=== PATIENT | female | born 1980 | race Caucasian/White ===

== ENCOUNTER 2017-12-01 11:00 | Emergency (ER) | payer OTHER ==
[2017-12-01 12:57] LABS: ABS Basophils 0.1 10^3/ul (0-0.2); ABS Eosinophils 0.2 10^3/ul (0-0.6); ABS Lymphocytes 1.8 10^3/ul (1.0-4.8); ABS Monocytes 0.7 10^3/ul (0-0.8); ABS Neutrophils 6.9 10^3/ul (1.5-7.7); ABS Nucleated RBC 0 10^3/ul; Hematocrit 40 % (35-47); Hemoglobin 13.5 g/dl (12.0-16.0); Lymphocyte % 18.9 % (25-47); Mean Corpuscular HGB Conc 34 g/dl (31-36); Mean Corpuscular Hemoglobin 31 pg (27-31); Mean Corpuscular Volume 91 fL (80-97); Mean Platelet Volume 7 um3 (7.4-10.4); Nucleated Red Blood Cells % 0; Platelet Count 370 10^3/ul (150-450); Red Blood Count 4.37 10^6/ul (4.0-5.4); Red Cell Distribution Width 13 % (10.5-15); White Blood Count 9.7 10^3/ul (3.5-10.8)
[2017-12-01 13:04] LABS: INR 0.98 (0.77-1.02)
--- NOTE | 2017-12-01 13:11 | RAD ---
HISTORY: Headache, ringing in ears COMPARISONS: None TECHNIQUE: Multiple contiguous axial CT scans were obtained of the head without intravenous contrast. FINDINGS: HEMORRHAGE/INFARCT: There is no hemorrhage or acute infarct. MASSES/SHIFT: There is no mass or shift. EXTRA-AXIAL SPACES: There are no extra-axial fluid collections. SULCI AND VENTRICLES: The sulci and ventricles are normal in size and position for the patient's stated age. CEREBRUM: There are no focal parenchymal abnormalities. BRAINSTEM: There are no focal parenchymal abnormalities. CEREBELLUM: There are no focal parenchymal abnormalities. VESSELS: The vessels are grossly normal. PARANASAL SINUSES: The paranasal sinuses are clear. ORBITS: The orbits are unremarkable. BONES AND SOFT TISSUE: No bone or soft tissue abnormalities are noted. OTHER: None IMPRESSION: NO ACUTE INTRACRANIAL PATHOLOGY.
[2017-12-01 13:21] LABS: EGFR Non-African American 101.5 (>60)
[2017-12-01 13:21] LABS: Urine Appearance Cloudy; Urine Blood 2+ (Negative); Urine Color Yellow; Urine Ketones Negative (Negative); Urine Protein Negative (Negative); Urine Specific Gravity 1.026 (1.010-1.030); Urine Urobilinogen Negative (Negative)
[2017-12-01 13:55] VITALS: BP 127/84
--- NOTE | 2017-12-02 15:28 | ED ---
Jennifer Cain Gabriel, scribed for Chad Da Silva MD on 12/01/17 at 1239 . Headache - HPI Summary HPI Summary: This patient is a 37 year old F presenting to [facility] with a chief complaint of HERNANDEZ since 11-21-2017. The patient rates the dull achy pain 4/10 in severity and located in the back of her head. Symptoms aggravated by increased screen time. Patient reports ringing in her ears, blurry vision, intermittent extremity tingling, and impaired sense of taste and smell. Pt compares the HERNANDEZ to a bad hangover. She had a more intense HERNANDEZ on 11-20-17 and it was more wide spread her head but it has slightly dulled now. - History Of Current Complaint Chief Complaint: EDHeadache Stated Complaint: HEADACHE, RING IN EARS Time Seen by Provider: 12/01/17 12:19 Hx Obtained From: Patient Hx Last Menstrual Period: currently Onset/Duration: Still Present Initially Headache Was: Initial Pain Scale(0-10)= - 6 Currently Pain Is: Current Pain Scale(0-10)= - 4 Timing: Constant Character: Dull Location of Headache: Occipital Associated Signs And Symptoms: Other (Noted In Comments) - ringing in her ears, blurry vision, intermittent extremity tingling, and impaired sense of taste and smell. - Allergies/Home Medications Allergies/Adverse Reactions: Allergies Allergy/AdvReac Type Severity Reaction Status Date / Time MS Erythromycin AdvReac Severe GI Upset Verified 12/01/17 11:14 [Erythromycin] Home Medications: Home Medications NK [No Home Medications Reported] 12/01/17 [History Confirmed 12/01/17] PMH/Surg Hx/FS Hx/Imm Hx Endocrine/Hematology History: Denies: Hx Diabetes, Hx Thyroid Disease Cardiovascular History: Denies: Hx Hypertension Respiratory History: Denies: Hx Asthma, Hx Chronic Obstructive Pulmonary Disease (COPD) GI History: Denies: Hx Ulcer Sensory History: Denies: Hx Eye Prosthesis, Hx Glaucoma, Hx Legally Blind - Surgical History Surgery Procedure, Year, and Place: Benign Melanoma Left Index Finger Jul 2011 Infectious Disease History: Unable to Obtain/Confirm Infectious Disease History: Denies: Hx Hepatitis, Hx Human Immunodeficiency Virus (HIV), Traveled Outside the [place] in Last 30 Days - Family History Known Family History: Positive: Cardiac Disease, Diabetes Negative: Renal Disease, Respiratory Disease, Seizure Disorder, Other - CVA - Social History Occupation: Employed Full-time Lives: With Family Alcohol Use: Occasionally Substance Use Type: Reports: None Review of Systems Positive: Blurred Vision ENT: Other Positive: Other - ringing in ears Positive: Headache, Paresthesia All Other Systems Reviewed And Are Negative: Yes Physical Exam - Summary Physical Exam Summary: Appearance: The patient is well-nourished in no acute distress and in no acute pain. Skin: The skin is warm and dry and skin color reflects adequate perfusion. HEENT: The head is normocephalic and atraumatic. The pupils are equal and reactive. The conjunctivae are clear and without drainage. Nares are patent and without drainage. Mouth reveals moist mucous membranes and the throat is without erythema and exudate. The external ears are intact. The ear canals are patent and without drainage. The tympanic membranes are intact. Neck: the neck is supple with full range of motion and non-tender. There are no carotid bruits. There is no neck vein distension. Respiratory: Chest is non-tender. Lungs are clear to auscultation and breath sounds are symmetrical and equal. Cardiovascular: Heart is regular rate and rhythm. There is no murmur or rub auscultated. There is no peripheral edema and pulses are symmetrical and equal. Abdomen: The abdomen is soft and non-tender. There are normal bowel sounds heard in all four quadrants and there is no organomegaly palpated. Musculoskeletal: There is no back tenderness noted. Extremities are non-tender with full range of motion. There is good capillary refill. There is no peripheral edema or calf tenderness elicited. Neurological: Patient is alert and oriented to person, place and time. The patient has symmetrical motor strength in all four extremities. Cranial nerves are grossly intact. Deep tendon reflexes are symmetrical and equal in all four extremities. Psychiatric: The patient has an appropriate affect and does not exhibit any anxiety or depression. Triage Information Reviewed: Yes Vital Signs On Initial Exam: Initial Vitals Temp Pulse Resp BP Pulse Ox 97.3 F 80 16 133/94 100 12/01/17 11:09 12/01/17 11:09 12/01/17 11:09 12/01/17 11:12/01/17 11:09 Vital Signs Reviewed: Yes Diagnostics - Vital Signs Vital Signs Temp Pulse Resp BP Pulse Ox 12/01/17 11:09 97.3 F 80 16 133/94 100 - Laboratory Lab Results: Lab Results 12/01/17 12/01/17 12/01/17 Range/Units 12:49 12:49 12:49 WBC 9.7 (3.5-10.8) 10^3/ul RBC 4.37 (4.0-5.4) 10^6/ul Hgb 13.5 (12.0-16.0) g/dl Hct 40 (35-47) % MCV 91 (80-97) fL MCH 31 (27-31) pg MCHC 34 (31-36) g/dl RDW 13 (10.5-15) % Plt Count 370 (150-450) 10^3/ul MPV 7 L (7.4-10.4) um3 Neut % (Auto) 71.2 (38-83) % Lymph % (Auto) 18.9 L (25-47) % Ashe % (Auto) 7.0 (1-9) % Eos % (Auto) 2.0 (0-6) % Baso % (Auto) 0.9 (0-2) % Absolute Neuts (auto) 6.9 (1.5-7.7) 10^3/ul Absolute Lymphs (auto) 1.8 (1.0-4.8) 10^3/ul Absolute Monos (auto) 0.7 (0-0.8) 10^3/ul Absolute Eos (auto) 0.2 (0-0.6) 10^3/ul Absolute Basos (auto) 0.1 (0-0.2) 10^3/ul Absolute Nucleated RBC 0 10^3/ul Nucleated RBC % 0 INR (Anticoag Therapy) 0.98 (0.77-1.02) Sodium 137 (133-145) mmol/L Potassium 3.5 (3.5-5.0) mmol/L Chloride 101 (101-111) mmol/L Carbon Dioxide 29 (22-32) mmol/L Anion Gap 7 (2-11) mmol/L BUN 8 (6-24) mg/dL Creatinine 0.65 (0.51-0.95) mg/dL Est GFR ( Amer) 130.5 (>60) Est GFR (Non-Af Amer) 101.5 (>60) BUN/Creatinine Ratio 12.3 (8-20) Glucose 93 (70-100) mg/dL Lactic Acid (0.5-2.0) mmol/L Calcium 9.6 (8.6-10.3) mg/dL Magnesium 2.1 (1.9-2.7) mg/dL Total Bilirubin 0.40 (0.2-1.0) mg/dL AST 15 (13-39) U/L ALT 16 (7-52) U/L Alkaline Phosphatase 64 (34-104) U/L Troponin I 0.00 (<0.04) ng/mL Total Protein 7.8 (6.4-8.9) g/dL Albumin 4.3 (3.2-5.2) g/dL Globulin 3.5 (2-4) g/dL Albumin/Globulin Ratio 1.2 (1-3) TSH 3.68 (0.34-5.60) mcIU/mL Urine Color Urine Appearance Urine pH (5-9) Ur Specific [place] (1.010-1.030) Urine Protein (Negative) Urine Ketones (Negative) Urine Blood (Negative) Urine Nitrate (Negative) Urine Bilirubin (Negative) Urine Urobilinogen (Negative) Ur Leukocyte Esterase (Negative) Urine WBC (Auto) (Absent) Urine RBC (Auto) (Absent) Ur Squamous Epith Cells (Absent) Urine Bacteria (Absent) Urine Glucose (Negative) Urine Ascorbic Acid (Negative) 12/01/17 12/01/17 Range/Units 12:49 13:05 WBC (3.5-10.8) 10^3/ul RBC (4.0-5.4) 10^6/ul Hgb (12.0-16.0) g/dl Hct (35-47) % MCV (80-97) fL MCH (27-31) pg MCHC (31-36) g/dl RDW (10.5-15) % Plt Count (150-450) 10^3/ul MPV (7.4-10.4) um3 Neut % (Auto) (38-83) % Lymph % (Auto) (25-47) % Ashe % (Auto) (1-9) % Eos % (Auto) (0-6) % Baso % (Auto) (0-2) % Absolute Neuts (auto) (1.5-7.7) 10^3/ul Absolute Lymphs (auto) (1.0-4.8) 10^3/ul Absolute Monos (auto) (0-0.8) 10^3/ul Absolute Eos (auto) (0-0.6) 10^3/ul Absolute Basos (auto) (0-0.2) 10^3/ul Absolute Nucleated RBC 10^3/ul Nucleated RBC % INR (Anticoag Therapy) (0.77-1.02) Sodium (133-145) mmol/L Potassium (3.5-5.0) mmol/L Chloride (101-111) mmol/L Carbon Dioxide (22-32) mmol/L Anion Gap (2-11) mmol/L BUN (6-24) mg/dL Creatinine (0.51-0.95) mg/dL Est GFR ( Amer) (>60) Est GFR (Non-Af Amer) (>60) BUN/Creatinine Ratio (8-20) Glucose (70-100) mg/dL Lactic Acid 1.5 (0.5-2.0) mmol/L Calcium (8.6-10.3) mg/dL Magnesium (1.9-2.7) mg/dL Total Bilirubin (0.2-1.0) mg/dL AST (13-39) U/L ALT (7-52) U/L Alkaline Phosphatase (34-104) U/L Troponin I (<0.04) ng/mL Total Protein (6.4-8.9) g/dL Albumin (3.2-5.2) g/dL Globulin (2-4) g/dL Albumin/Globulin Ratio (1-3) TSH (0.34-5.60) mcIU/mL Urine Color Yellow Urine Appearance Cloudy Urine pH 5.0 (5-9) Ur Specific [place] 1.026 (1.010-1.030) Urine Protein Negative (Negative) Urine Ketones Negative (Negative) Urine Blood 2+ H (Negative) Urine Nitrate Negative (Negative) Urine Bilirubin Negative (Negative) Urine Urobilinogen Negative (Negative) Ur Leukocyte Esterase Negative (Negative) Urine WBC (Auto) Trace(0-5/hpf) (Absent) Urine RBC (Auto) 2+(6-10/hpf) H (Absent) Ur Squamous Epith Cells Present H (Absent) Urine Bacteria Absent (Absent) Urine Glucose Negative (Negative) Urine Ascorbic Acid * H (Negative) Result Diagrams: 12/01/17 12:49 12/01/17 12:49 Lab Statement: Any lab studies that have been ordered have been reviewed, and results considered in the medical decision making process. - CT CT Brain CT Interpretation Completed By: Radiologist - NO ACUTE INTRACRANIAL PATHOLOGY. ED physician has reviewed this radiology report. 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 Since then it has down to a diffuse ache. She had some blurred and possibly diplopic vison which she is equivocal about whether it has resolved. She has had no gait disturbance. 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 When I first spoke with her, she made it clear that she had to be elsewhere to teach a class which she was unwilling to cancel so we made some compromises. She had a quick CT brain which was negative and labs also. I spoke with Dr. Sol because of my concern that she would likely need an LP and he agreed. It is unlikely but this could represent infection or sentinel bleed. We didn't have time but I was able to get her hooked up with Dr. Moser for an outpatient LP tomorrow or Wednesday and Dr. Sol was willing to see her in the office the first of next week. She will possibly need MR in the future. - Diagnoses Provider Diagnoses: Headache - Physician Notifications Discussed Care Of Patient With: Selwyn Sol Time Discussed With Above Provider: 13:26 Instructed by Provider To: Other - We discussed patient care with Dr. Sol and they recommended a LP but if she doesnt stay he will follow up with her next week. Discharge - Discharge Plan Condition: Stable Disposition: HOME Patient Education Materials: Acute Headache (ED) Referrals: Megan Moser MD [Medical Doctor] - 4 Days Selwyn Sol MD [Medical Doctor] - 7 Days Additional Instructions: Follow up with Dr. Sol he has agreed to see you next week, call [facility] to set up an appointment. RETURN TO EMERGENCY DEPARTMENT FOR ANY NEW OR WORSENING SYMPTOMS The documentation as recorded by the Jennifer machuca Gabriel accurately reflects the service I personally performed and the decisions made by me, Chad Da Silva MD.
== END 2017-12-01 13:54 | disposition home or self-care (01) ==
LOC: ED 11:00
DX: R51 Headache (principal); H53.8 Other visual disturbances; R20.2 Paresthesia of skin
CPT/HCPCS: 36415; 70450; 80053; 81003; 81015; 83605; 83735; 84443; 84484; 85025; 85610; 99282

== ENCOUNTER 2017-12-03 10:56 | Emergency (ER) | payer OTHER ==
[2017-12-03 12:37] LABS: ABS Basophils 0.1 10^3/ul (0-0.2); ABS Eosinophils 0.1 10^3/ul (0-0.6); ABS Lymphocytes 1.8 10^3/ul (1.0-4.8); ABS Monocytes 0.5 10^3/ul (0-0.8); ABS Neutrophils 6.1 10^3/ul (1.5-7.7); ABS Nucleated RBC 0 10^3/ul; Eosinophil % 1.5 % (0-6); Hematocrit 38 % (35-47); Hemoglobin 13.1 g/dl (12.0-16.0); Lymphocyte % 20.7 % (25-47); Mean Corpuscular HGB Conc 34 g/dl (31-36); Mean Corpuscular Hemoglobin 31 pg (27-31); Mean Corpuscular Volume 90 fL (80-97); Mean Platelet Volume 7 um3 (7.4-10.4); Nucleated Red Blood Cells % 0; Platelet Count 396 10^3/ul (150-450); Red Blood Count 4.25 10^6/ul (4.0-5.4); Red Cell Distribution Width 13 % (10.5-15); White Blood Count 8.5 10^3/ul (3.5-10.8)
[2017-12-03 12:47] LABS: INR 0.92 (0.77-1.02)
[2017-12-03 13:05] LABS: EGFR Non-African American 105.2 (>60)
[2017-12-03] MEDS ORDERED: Lidocaine 1% INJ* 10 MG/ML 30 ML SDV ONE (13:08)
[2017-12-03 14:33] LABS: Urine Appearance Cloudy; Urine Blood 3+ (Negative); Urine Color Yellow; Urine Ketones Negative (Negative); Urine Protein Negative (Negative); Urine Specific Gravity 1.012 (1.010-1.030); Urine Urobilinogen Negative (Negative)
[2017-12-03] MEDS ORDERED: Gadoteridol* (CONTRAST) 279.3 MG/ML 10 ML IV ONE (15:53)
[2017-12-03] MEDS ORDERED: Ketorolac INJ* 30 MG/ML 1 ML VIAL IV PUSH ONE (19:13)
[2017-12-03] MEDS ORDERED: Dexamethasone IV* 4 MG/ML 1 ML (4 MG) IV SLOW PU ONE (19:13)
[2017-12-03] MEDS ORDERED: Ketorolac INJ* 60 MG/2 ML VIAL IM ONE (19:18)
[2017-12-03] MEDS ORDERED: Dexamethasone IV* 4 MG/ML 1 ML (4 MG) IM ONE (19:18)
--- NOTE | 2017-12-03 19:36 | ED ---
Ehsan Cain Jennifer, scribed for Aureliano Alarcon MD on 12/03/17 at 1242 . Neurological HPI - HPI Summary HPI Summary: The patient is a 37 year old female who presents to the ED with headaches that began about two weeks ago. She describes that three weeks ago she woke up with a bad headache and took two Advil, which relieved the pain. However, the headache came back two weeks ago. The patient reports that the pain is a dull, throbbing pain in the back of her head and she has been sensitive to light. She has also had vision problems, like drifting eyes, tinnitus, blurry vision, and her sense of taste and smell are off. The patient additionally complains of nausea, loss of appetite, increased frequency of urinating, severe diarrhea that began two days ago, neck tightness since four days ago, tingling in the left ankle and upper back, and bloating, cramping abdominal pain that has been coming and going for the past four days. She denies blood or black, tarry stool and adds that she is currently on her period. She also denies fever, sweats, and chills. The patient explains that sneezing aggravates the headache. Dr. Alarcon reviewed Dr. Reevles medical records of the patient from December 01. - History of Current Complaint Chief Complaint: EDExtremityLower Stated Complaint: BACK & FOOT NUMBNESS-WAS HERE 12/01 Time Seen by Provider: 12/03/17 12:18 Hx Obtained From: Patient Hx Last Menstrual Period: currently Onset/Duration: Started weeks ago - two weeks, Still Present, Worse Since Timing: Constant Onset Severity: Moderate Current Severity: Moderate Headache Location: Radiates to : - Back of head Pain Intensity: 3 Pain Scale Used: 0-10 Numeric Character: Dull, Throbbing Aggravating: Headaches - Sneezing, Bright Lights Alleviating: Nothing Associated Signs and Symptoms: Positive: Tinnitus, Visual Changes, Headache, Numbness - Tingling in left ankle, Nausea/Vomiting - Nausea, Neck Pain/Stiffness , Diarrhea. Negative: GI Blood Loss, Fever - Allergy/Home Medications Allergies/Adverse Reactions: Allergies Allergy/AdvReac Type Severity Reaction Status Date / Time MS Erythromycin AdvReac Severe GI Upset Verified 12/01/17 11:14 [Erythromycin] PMH/Surg Hx/FS Hx/Imm Hx Endocrine/Hematology History: Denies: Hx Diabetes, Hx Thyroid Disease Cardiovascular History: Denies: Hx Hypertension Respiratory History: Denies: Hx Asthma, Hx Chronic Obstructive Pulmonary Disease (COPD) GI History: Denies: Hx Ulcer Sensory History: Denies: Hx Eye Prosthesis, Hx Glaucoma, Hx Legally Blind Opthamlomology History: Denies: Hx Eye Prosthesis, Hx Glaucoma, Hx Legally Blind Neurological History: Denies: Hx Migraine - Surgical History Surgery Procedure, Year, and Place: Benign Melanoma Left Index Finger Jul 2011 Infectious Disease History: No Infectious Disease History: Denies: Hx Hepatitis, Hx Human Immunodeficiency Virus (HIV), Traveled Outside the [place] in Last 30 Days - Family History Known Family History: Positive: Cardiac Disease, Diabetes Negative: Renal Disease, Respiratory Disease, Seizure Disorder, Other - CVA - Social History Alcohol Use: Occasionally Substance Use Type: Reports: None Smoking Status (MU): Never Smoked Tobacco Review of Systems Positive: Other - Sense of taste and smell are off. Negative: Fever, Chills, Skin Diaphoresis Eyes: Other - Drifting eyes Positive: Photophobia, Blurred Vision. Negative: Erythema Negative: Sore Throat Negative: Chest Pain Negative: Shortness Of Breath, Cough Positive: Abdominal Pain - Bloating, cramping, Diarrhea, Nausea, Other - Loss of appetite. Negative: Vomiting Genitourinary: Negative - Bloody and black stools, Other - Increased frequency of urinating Negative: dysuria, hematuria Positive: Other - Neck tightness. Negative: Myalgia, Edema Negative: Rash Neurological: Negative - Dizziness, Other - Tinnitus, tingling in the left ankle and upper back Positive: Headache All Other Systems Reviewed And Are Negative: Yes Physical Exam - Summary Physical Exam Summary: Constitutional: Well-developed, Well-nourished, Alert. (-) Distressed Skin: Warm, Dry HENT: Normocephalic; Atraumatic Eyes: Conjunctiva normal. Limited fundoscopic exam. Neck: Musculoskeletal ROM normal neck. (-) JVD, (-) Stridor, (-) Tracheal deviation Cardio: Rhythm regular, rate normal, Heart sounds normal; Intact distal pulses; The pedal pulses are 2+ and symmetric. Radial pulses are 2+ and symmetric. (-) Murmur Pulmonary/Chest wall: Effort normal. (-) Respiratory distress, (-) Wheezes, (-) Rales Abd: Soft. (-) Tenderness, ~(-) Distension, (-) Guarding, (-) Rebound Musculoskeletal: (-) Edema Lymph: (-) Cervical adenopathy Neuro: Alert, Oriented x3, Strength normal, Cranial nerves II-XII are grossly intact. (-) Dysmetria, (-) Nystagmus, (-) Ataxia by finger to nose testing, (-) Sensory deficit. Psych: Mood and affect Normal Triage Information Reviewed: Yes Vital Signs On Initial Exam: Initial Vitals Temp Pulse Resp BP Pulse Ox 97.7 F 93 20 133/71 100 12/03/17 11:00 12/03/17 11:00 12/03/17 11:00 12/03/17 11:12/03/17 11:00 Vital Signs Reviewed: Yes Procedures - Lumbar Puncture Position: Lateral Decubitus - Left Anesthesia Used: 1.0% Lido - 5mL Lumbar Puncture Note: Informed consent occurred and patient understood the risks including headache, bleeding, and infection. Timeout with Saima. Landmarks were identified. Position was left lateral decubitus, L4-L5 interspace 5mL of 1% Lidocaine was used. Clear fluid was obtained. Slightly traumatic tap. Opening pressure was 17cm of water. Patient tolerated well. Diagnostics - Vital Signs Vital Signs Temp Pulse Resp BP Pulse Ox 12/03/17 11:00 97.7 F 93 20 133/71 100 - Laboratory Result Diagrams: 12/03/17 12:20 12/03/17 12:20 Lab Statement: Any lab studies that have been ordered have been reviewed, and results considered in the medical decision making process. Course/Dx - Course Assessment/Plan: The patient is a 37 year old female who presents to the ED with headaches that began about two weeks ago. She additionally complains of tinnitus, blurry vision, off sense of taste and smell, nausea, loss of appetite , increased frequency of urinating, severe diarrhea, neck tightness, tingling in the left ankle and upper back, and abdominal pain. Bloodwork and Urinalysis were obtained. A Lumbar Puncture procedure was performed, which the patient tolerated well. Dr. Sol, neurology, recommended that the patient have MRA, MRV , and MRI scans done. I evaluated the preliminary reads for the MRs and all were negative. CSF was negative for subarachnoid hemorrhage and pseudotumor cerebri. Dr. Sol would like to see the patient in his office next week. The associated symptoms could be related to migraine headache. The patient is diagnosed with headache. She will have close follow-up with neurology. I will write a prescription for Reglan for at home. She can follow-up with Dr. Gabriel Sol in 2-3 days. She needs to tell the office that he wanted to see her on 12/06/2017 or 12/07/2017. - Diagnoses Provider Diagnoses: Headache - Physician Notifications Discussed Care Of Patient With: Selwyn Sol Time Discussed With Above Provider: 13:55 Instructed by Provider To: Other - Dr. Sol, neurology, recommends the patient has MRA, MRV, and MRI scans done. Discharge - Discharge Plan Condition: Stable Disposition: HOME Prescriptions: Metoclopramide TAB* [Reglan TAB*] 10 mg PO Q8H #21 tab Referrals: Selwyn Sol MD [Medical Doctor] - 3 Days Additional Instructions: Follow up with Dr. Gabriel Sol, neurology, in two-three days. Return to the emergency department for any new or worsening symptoms. The documentation as recorded by the Ehsan machuca Jennifer accurately reflects the service I personally performed and the decisions made by , Aureliano Alarcon MD.
[2017-12-03 19:58] VITALS: BP 118/95
--- NOTE | 2017-12-04 07:27 | RAD ---
HISTORY: Persistent headache COMPARISONS: None TECHNIQUE: 3-D axial [id number] MR angiography was performed of the head to include the [place] of Read. Multiple 3-D maximum intensity projection reconstructions are also submitted for review. FINDINGS: RIGHT VERTEBRAL ARTERY: The distal right vertebral artery is unremarkable, without stenosis. LEFT VERTEBRAL ARTERY: The distal left vertebral artery is unremarkable, without stenosis. DOMINANCE: The vertebral arteries are codominant. DISTAL RIGHT CERVICAL INTERNAL CAROTID ARTERY: The distal right cervical internal carotid artery is unremarkable. DISTAL LEFT CERVICAL INTERNAL CAROTID ARTERY: The distal left cervical internal carotid artery is unremarkable. INTRACRANIAL CIRCULATION: There is no aneurysm, vascular malformation, occlusion, or stenosis of the visualized intracranial circulation. The anterior communicating artery complex is dominant over the A1 segment of the right anterior cerebral artery. The anterior communicating artery complex is clear. The posterior commuting arteries are diminutive, though present. The right middle cerebral artery is essentially isolated with associated asymmetry in the size of internal carotid arteries. This is considered a normal anatomic variant. OTHER FINDINGS: None IMPRESSION: NO ANEURYSM, VASCULAR MALFORMATION, OCCLUSION, OR STENOSIS OF THE VISUALIZED INTRACRANIAL CIRCULATION.
--- NOTE | 2017-12-04 07:30 | RAD ---
HISTORY: Headache COMPARISONS: None TECHNIQUE: Multiple 3-D phase contrast MR venography was performed, with multiple 3-D maximum intensity projection reconstructions. FINDINGS: VENOUS SINUSES: The venous sinuses are patent. There is no stenosis or occlusion. There is no filling defect to suggest thrombosis. Arachnoid granulations are noted. DEEP VEINS: The deep veins are patent. The internal cerebral veins are dominant over the basal veins of Nelson. OTHER FINDINGS: None IMPRESSION: NO VENOUS SINUS THROMBOSIS OR OCCLUSION.
--- NOTE | 2017-12-04 07:33 | RAD ---
HISTORY: Headache COMPARISONS: Head CT dated December 01, 2017 TECHNIQUE: The following sequences were obtained of the head: Sagittal T1-weighted images, axial T2-weighted images, axial FLAIR images, axial susceptibility weighted images, axial T1-weighted images. Additionally, axial diffusion-weighted images were obtained with calculated apparent diffusion coefficients. Additionally, sagittal, coronal, and axial T1-weighted images were obtained after contrast enhancement with a gadolinium-based intravenous contrast agent. FINDINGS: HEMORRHAGE/INFARCT: There is no hemorrhage or acute infarct. MASSES/SHIFT: There is no mass or shift. EXTRA-AXIAL SPACES/MENINGES: There are no extra-axial fluid collections. SULCI AND VENTRICLES: The sulci and ventricles are normal in size and position for the patient's stated age. CEREBRUM: There is a single small focus of elevated T2/FLAIR signal in the subcortical white matter of the left frontal lobe on axial image 20 measuring 0.7 x 0.3 cm in size transversely. There is no associated abnormal enhancement. No other focal parenchymal abnormalities are noted. BRAINSTEM: There are no focal parenchymal abnormalities. CEREBELLUM: There are no focal parenchymal abnormalities. The cerebellar tonsils are normal in size and position. SELLA: The sella is normal. PINEAL: The pineal region is clear. CP ANGLE/TEMPORAL BONES: The labyrinthine structures are grossly normal. VESSELS: Normal flow-voids are noted within the visualized vertebral vasculature. DIFFUSION ABNORMALITIES: There are no diffusion abnormalities. PARANASAL SINUSES/MASTOIDS: There is a small mucous retention cyst of the right maxillary sinus. ORBITS: The orbits are unremarkable. BONES AND SOFT TISSUE: No bone or soft tissue abnormalities are noted. OTHER: There is no abnormal enhancement. IMPRESSION: 1. STABLE SMALL NONENHANCING FOCUS OF ELEVATED T2/CARCINOMA SUBCORTICAL WHITE MATTER OF THE LEFT FRONTAL LOBE. WHILE NONSPECIFIC, THIS CAN BE SEEN THE SEQUELA OF PREVIOUS INFECTION OR INFLAMMATION, AND IN ASSOCIATION WITH MIGRAINE HEADACHE. CHRONIC SMALL VESSEL ISCHEMIC CHANGE AND DEMYELINATING DISEASE ARE WITHIN THE DIFFERENTIAL, BUT ARE CONSIDERED LESS LIKELY IN THE ABSENCE OF THE APPROPRIATE CLINICAL PRESENTATION. 2. OTHERWISE UNREMARKABLE MRI OF THE BRAIN. THERE IS NO ABNORMAL ENHANCEMENT
== END 2017-12-03 19:57 | disposition home or self-care (01) ==
LOC: ED 10:56
DX: R51 Headache (principal); G93.9 Disorder of brain, unspecified; Z88.3 Allergy status to other anti-infective agents
CPT/HCPCS: 36415; 62270; 70544; 70553; 80053; 81003; 81015; 82945; 83605; 84157; 85025; 85610; 85652; 85730; 86140; 87040; 87070; 87205; 89051; 96374; 96375; 99284; A9579; J1100; J1885

== ENCOUNTER 2019-03-13 09:44 | Emergency (ER) | payer OTHER ==
--- NOTE | 2019-03-13 10:25 | ED ---
Abdominal Pain/Female - HPI Summary HPI Summary: The patient is a 38 y/o F presenting to [facility] accompanied by with a chief complaint of gradual onset left low back and left flank pain that radiates to the left abdominal pain starting three days ago with worsening since onset. She states that although she hasn't had any kidney stones, she thinks that she may have one because of an extensive family history of them in her grandparents, father, brother, and aunt. The sharp pain is more consistent than it was initially, and it's currently rated 8/10 in severity. She has taken 800mg Ibuprofen [employer] to mild relief. The pain is aggravated by lying or sitting, and alleviated by standing. She additionally c/o nausea and increased urinary frequency, but she states she has been drinking more water than usual. She denies burning with urination and hematuria. LNMP: 02/25/2019. Hx of viral meningitis. Nonsmoker, occasional EtOH, no substance use. - History of Current Complaint Chief Complaint: EDFlankPain Stated Complaint: BACK PAIN/ POSS KIDNEY STONE PER PT Time Seen by Provider: 03/13/19 10:02 Hx Obtained From: Patient Hx Last Menstrual Period: currently Onset/Duration: Gradual Onset, Lasting Days - three, Still Present Timing: Constant Severity Initially: Mild Severity Currently: Moderate Pain Intensity: 8 Pain Scale Used: 0-10 Numeric Location: Flank - left Radiates: Yes Radiates to: Back - left low, LLQ Character: Sharp Aggravating Factor(s): Other: - sitting, lying down Alleviating Factor(s): Other: - standing Associated Signs and Symptoms: Positive: Urinary Symptoms - increased frequency ; NEGATIVE: burning, hematuria, Nausea Allergies/Adverse Reactions: Allergies Allergy/AdvReac Type Severity Reaction Status Date / Time erythromycin base Allergy GI Upset Verified 03/13/19 09:56 PMH/Surg Hx/FS Hx/Imm Hx Endocrine/Hematology History: Denies: Hx Diabetes, Hx Thyroid Disease Cardiovascular History: Denies: Hx Hypertension, Hx Pacemaker/ICD Respiratory History: Denies: Hx Asthma, Hx Chronic Obstructive Pulmonary Disease (COPD) GI History: Denies: Hx Ulcer Sensory History: Denies: Hx Eye Prosthesis, Hx Glaucoma, Hx Legally Blind, Hx Hearing Aid Opthamlomology History: Denies: Hx Eye Prosthesis, Hx Glaucoma, Hx Legally Blind Neurological History: Denies: Hx Migraine Psychiatric History: Denies: Hx Panic Disorder - Surgical History Surgery Procedure, Year, and Place: Benign Melanoma Left Index Finger Jul 2011 Infectious Disease History: No Infectious Disease History: Denies: Hx Hepatitis, Hx Human Immunodeficiency Virus (HIV), Traveled Outside the [place] in Last 30 Days - Family History Known Family History: Positive: Cardiac Disease, Diabetes, Other - kidney stones in grandparents, father, brother, aunt Negative: Renal Disease, Respiratory Disease, Seizure Disorder - Social History Lives: With Family Alcohol Use: Occasionally Hx Substance Use: No Substance Use Type: Reports: None Hx Tobacco Use: No Smoking Status (MU): Never Smoked Tobacco Do You Chew or Dip Tobacco: No Have You Chewed or Dipped Tobacco in the LAST YEAR: No Have You Smoked in the Last Year: No Review of Systems Positive: Abdominal Pain - left flank pain radiating to left abdominal , Nausea Positive: frequency. Negative: burning, hematuria Positive: Other - left low back pain All Other Systems Reviewed And Are Negative: Yes Physical Exam - Summary Physical Exam Summary: VITAL SIGNS: Reviewed. GENERAL: Patient is a well-developed and nourished female who is lying comfortable in the stretcher. Patient is not in any acute respiratory distress. HEAD AND FACE: Normocephalic and atraumatic. EYES: PERRLA, EOMI x 2, No injected conjunctiva. EARS: Hearing grossly intact. Ear canals and tympanic membranes are WNL. MOUTH: Oropharynx within normal limits. NECK: Supple, trachea is midline, no adenopathy, no JVD. CHEST: Symmetric, no tenderness at palpation LUNGS: Clear to auscultation bilaterally. No wheezing or crackles. CVS: RRR, S1 and S2 present, no murmurs or gallops appreciated. ABDOMEN: Soft, left CVA tenderness. No signs of distention. Positive bowel sounds. No rebound no guarding, and no masses palpated. No abdominal bruit or pulsations. EXTREMITIES: FROM in all major joints, no edema, no cyanosis or clubbing. NEURO: Alert and oriented x 3. No acute neurological deficits. Speech is normal. SKIN: Dry and warm. Triage Information Reviewed: Yes Vital Signs On Initial Exam: Initial Vitals Temp Pulse Resp BP Pulse Ox 98.3 F 75 18 152/95 99 03/13/19 09:53 03/13/19 09:53 03/13/19 09:53 03/13/19 09:53 03/13/19 09:53 Vital Signs Reviewed: Yes Diagnostics - Vital Signs Vital Signs Temp Pulse Resp BP Pulse Ox 03/13/19 09:53 98.3 F 75 18 152/95 99 - Laboratory Result Diagrams: 03/13/19 10:38 03/13/19 10:38 Lab Statement: Any lab studies that have been ordered have been reviewed, and results considered in the medical decision making process. - CT Abd/Pel CT CT Interpretation Completed By: Radiologist Summary of CT Findings: 1. No hydronephrosis or nephrolithiasis. 2. Fibroid uterus. ED physician has reviewed this report. Re-Evaluation - Re-Evaluation First Eval Re-Evaluation Time: 11:40 Change: Improved Comment: Her pain has improved. We discussed the results and discharge home with her. Abdominal Pain Fem Course/Dx - Course Course Of Treatment: The patient is a 38 y/o F presenting to [facility] accompanied by with a chief complaint of gradual onset left low back and left flank pain that radiates to the left abdominal pain starting three days ago with worsening since onset. She states that although she hasn't had any kidney stones , she thinks that she may have one because of an extensive family history of them in her grandparents, father, brother, and aunt. The sharp pain is more consistent than it was initially, and it's currently rated 8/10 in severity. She has taken 800mg Ibuprofen [employer] to mild relief. The pain is aggravated by lying or sitting, and alleviated by standing. She additionally c/o nausea and increased urinary frequency, but she states she has been drinking more water than usual. She denies burning with urination and hematuria. LNMP: 02/25/2019. Hx of viral meningitis. Nonsmoker, occasional EtOH, no substance use. In the ED course we obtained an IV access and the patient was given IV fluids and Toradol for the pain. Test results without any significant abnormality except for CRP of 9.3. Urinalysis is negative for UTI. Abdominal pelvic CT impression: No hydronephrosis or nephrolithiasis. Fibroid uterus. Therefore, I believe that the patient has back pain instead of kidney stones. The patient will be discharged home with prescription for muscle relaxant and anti-inflammatories. I discussed all the findings and test results with the patient. Patient was instructed to return to the emergency room immediately if any of the symptoms return worsens. Plan of care was discussed with the patient and understands and agrees. All questions were answered at patient satisfaction. There were no further complaints or concerns. Lung exam before discharge: CTA B/L. Good air exchange. No wheezing or crackles heard. CVS: S1 and S2 present. No murmurs appreciated. Patient is alert and oriented x 3. Patient is hemodynamically stable. Patient will be discharged home with follow up PCP in the next 2-3 days. - Diagnoses Provider Diagnoses: Back pain Discharge - Sign-Out/Discharge Documenting (check all that apply): Patient Departure - Patient will be discharged home. Patient Received Moderate/Deep Sedation with Procedure: No - Discharge Plan Condition: Stable Disposition: HOME Prescriptions: Hydrocodone/Acetaminophen [[place] 5-325 Tablet] 1 each PO Q6H PRN #12 tablet MDD 4 PRN Reason: Pain Methocarbamol TAB* [Robaxin 500 MG TAB*] 500 mg PO TID PRN #12 tab PRN Reason: Pain Patient Education Materials: Back Pain (ED) Referrals: Tangela Rivera MD [Primary Care Provider] - 3 Days Additional Instructions: Please take medications as prescribed. Follow up with your primary care provider in 2-3 days. RETURN TO THE EMERGENCY DEPARTMENT FOR ANY NEW OR WORSENING SYMPTOMS. - Billing Disposition and Condition Condition: STABLE Disposition: Home - Attestation Statements Document Initiated by Mariana: Yes Documenting Scribe: Hayley Ortiz Provider For Whom Mariana is Documenting (Include Credential): Dr. Dean Patterson MD Scribe Attestation: Hayley Cain scribed for Dr. Dean Patterson MD on 03/13/19 at 1549. Scribe Documentation Reviewed: Yes Provider Attestation: The documentation as recorded by the Hayley machuca accurately reflects the service I personally performed and the decisions made by me, Dr. Dean Patterson MD Status of Scrquentin Document: Viewed
[2019-03-13] MEDS ORDERED: NS 0.9% 1000 ML** 1,000 ML IV ONE (10:32)
[2019-03-13] MEDS ORDERED: Ketorolac INJ* 30 MG/ML 1 ML VIAL IV ONE (10:32)
[2019-03-13 10:59] LABS: ABS Basophils 0.1 10^3/ul (0-0.2); ABS Eosinophils 0.2 10^3/ul (0-0.6); ABS Lymphocytes 2.4 10^3/ul (1.0-4.8); ABS Monocytes 0.6 10^3/ul (0-0.8); ABS Neutrophils 7.1 10^3/ul (1.5-7.7); Eosinophil % 1.6 %; Hematocrit 38 % (35-47); Hemoglobin 13.1 g/dL (12.0-16.0); Lymphocyte % 22.7 %; Mean Corpuscular HGB Conc 34 g/dL (31-36); Mean Corpuscular Hemoglobin 31 pg (27-31); Mean Corpuscular Volume 90 fL (80-97); Mean Platelet Volume 7.3 fL (7.4-10.4); Nucleated Red Blood Cells % 0.1; Platelet Count 390 10^3/uL (150-450); Red Blood Count 4.25 10^6 /uL (3.70-4.87); Red Cell Distribution Width 14 % (10.5-15); White Blood Count 10.4 10^3/uL (3.5-10.8)
[2019-03-13 11:00] LABS: Urine Appearance Clear; Urine Bilirubin Negative (Negative); Urine Blood Negative (Negative); Urine Color Straw; Urine Glucose Negative (Negative); Urine Ketones Negative (Negative); Urine Nitrite Negative (Negative); Urine Protein Negative (Negative); Urine Specific Gravity 1.005 (1.010-1.030); Urine Urobilinogen Negative (Negative)
[2019-03-13 11:22] LABS: ALT 16 U/L (7-52); AST 13 U/L (13-39); Albumin 4.2 g/dL (3.2-5.2); Albumin/Globulin Ratio 1.2 (1-3); Alkaline Phosphatase 60 U/L (34-104); Anion Gap 6 mmol/L (2-11); BUN/Creatinine Ratio 11.8 (8-20); Blood Urea Nitrogen 8 mg/dL (6-24); CO2 Carbon Dioxide 28 mmol/L (22-32); Calcium 9.3 mg/dL (8.6-10.3); Chloride 105 mmol/L (101-111); Creatine Kinase 49 U/L (10-223); EGFR Non-African American 95.8 (>60); Globulin 3.4 g/dL (2-4); Glucose 83 mg/dL (70-100); Potassium 3.7 mmol/L (3.5-5.0); Sodium 139 mmol/L (135-145); Total Protein 7.6 g/dL (6.4-8.9)
[2019-03-13 11:28] LABS: HCG Pregnancy < 0.60 mIU/mL
[2019-03-13 11:52] VITALS: BP 132/65
== END 2019-03-13 12:04 | disposition home or self-care (01) ==
LOC: ED 09:44
DX: M54.5 Low back pain (principal); R10.84 Generalized abdominal pain
CPT/HCPCS: 36415; 74176; 80053; 81003; 82550; 83605; 83690; 84702; 85025; 86140; 96361; 96374; 99283; J1885

== ENCOUNTER 2019-05-02 02:39 | Emergency (ER) | payer OTHER ==
--- OUTSIDE RECORDS SUMMARY | 2019-05-02 03:42 | XMS REPORT | Continuity of Care Document ---
:1980 External Reference #:[id number] Author Name ERIN Martel Address [address] [place] [address] Care Team Providers Name Role Phone Tangela Rivera MD. Primary Care Physician Unavailable Payers Date Identification Numbers Payment Provider Subscriber Policy Number: [id number] [employer] P[employer] Shea Newberry PayID: [id number] [address] [place] [address] Family History Date Family Member(s) Observation Comments Father Skin Cancer Father due to Accident () - hit and run bicycle accident Mother Hypertension Mother Fibromyalgia Mother Atrial Fibrillation Children None Paternal Grandfather due to Unknown Causes () Paternal Grandmother due to Parkinsons () Maternal Grandfather due to CO () Maternal Grandfather CO Maternal Grandmother due to Old Age () Maternal Grandmother Skin Cancer Social History Type Date Description Comments Sex Unknown Education Highest Level Completed, Master's Degree Marital Status 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 Tobacco Use Start: Unknown Never Smoked Cigarettes ETOH Use Currently consumes 5-6 drinks a week alcohol Recreational Drug Use Denies Drug Use Tobacco Use Start: Unknown Patient has never smoked Smoking Status Reviewed: 04/11/19 Patient has never smoked Exercise Type/Frequency Exercises regularly Seat Belt/Car Seat Always uses seat belt Currently Active Patient is currently sexually active Contraceptive Methods Current methods include condoms Allergies, Adverse Reactions, Alerts Description No Known Drug Allergies Medications Active Medications SIG Qnty Indications Ordering Provider Date Valacyclovir HCL Unknown Enzycore Unknown Batrex Unknown Bind Unknown Calcium Lactate Unknown Mintran Unknown Minchex Unknown Medications Administered in Office Medication SIG Qnty Indications Ordering Provider Date No PT Tbco SCRN RNG ERIN Martel 04/11/2019 Injection Vital Signs Date Vital Result Comment 04/11/2019 1:19pm BP Systolic 122 mmHg BP Diastolic 70 mmHg Height 68.50 inches 5'8.50" Weight 240.00 lb BMI (Body Mass Index) 36.0 kg/m2 Last Menstrual Period [id number] 0 Results Test Date Facility Test Result H/L Range Note Laboratory test 04/11/2019 [facility] Cytology <pending> [place] [address] [phone] Procedures Date Code Description Status 04/11/2019 72246 Echography Transvaginal Completed 10/18/2014 [id number] Mammogram Completed Encounters Type Date Location Provider Dx Diagnosis Office Visit 04/11/2019 [facility] ERIN Martel D25.9 Leiomyoma of uterus, 1:40p unspecified N93.9 Abnormal uterine and vaginal bleeding, unspecified Plan of Treatment Future Appointment(s):06/07/2019 10:00 am - Rudi Johnson M.D. at [facility]04/11/2019 - NGHIA Martel.9 Leiomyoma of uterus, unspecifiedFollow up:r/v consult with MD , fibroids AND DUBN93.9 Abnormal uterine and vaginal bleeding, unspecified
[2019-05-02 04:09] LABS: ABS Basophils 0.1 10^3/ul (0-0.2); ABS Eosinophils 0.4 10^3/ul (0-0.6); ABS Lymphocytes 2.8 10^3/ul (1.0-4.8); ABS Monocytes 0.5 10^3/ul (0-0.8); ABS Neutrophils 6.7 10^3/ul (1.5-7.7); Eosinophil % 3.7 %; Hematocrit 37 % (35-47); Hemoglobin 12.8 g/dL (12.0-16.0); Lymphocyte % 26.6 %; Mean Corpuscular HGB Conc 34 g/dL (31-36); Mean Corpuscular Hemoglobin 31 pg (27-31); Mean Corpuscular Volume 89 fL (80-97); Mean Platelet Volume 6.9 fL (7.4-10.4); Nucleated Red Blood Cells % 0.1; Platelet Count 355 10^3/uL (150-450); Red Blood Count 4.19 10^6 /uL (3.70-4.87); Red Cell Distribution Width 14 % (10-15); White Blood Count 10.5 10^3/uL (3.5-10.8)
[2019-05-02 04:22] LABS: Activated Partial Thrombo Time 35.7 seconds (26.0-38.0); INR 1.05 (0.82-1.09)
[2019-05-02 04:26] LABS: Albumin 3.7 g/dL (3.2-5.2); Albumin/Globulin Ratio 1.1 (1-3); BUN/Creatinine Ratio 8.7 (8-20); Calcium 9.2 mg/dL (8.6-10.3); EGFR Non-African American 94.2 (>60); Globulin 3.4 g/dL (2-4); Potassium 3.7 mmol/L (3.5-5.0); Total Bilirubin 0.7 mg/dL (0.2-1.0); Total Protein 7.1 g/dL (6.4-8.9)
--- NOTE | 2019-05-02 05:13 | ED ---
Respiratory - HPI Summary HPI Summary: This patient is a 38 year old F presenting to [facility] [place] accompanied by her with a chief complaint of difficulty breathing since 0150 this morning. She stood up and walked around to get her breathing under control with no success. She then woke her up and they came to the ED. The episode lasted for half an hour and she notes she feels better now. Patient reports panicking, chest heaviness, trembling, and is able to swallow. Patient denies diaphoresis or any nightmares. The patient rates the pain 7/10 in severity. Symptoms aggravated by nothing. Symptoms alleviated by rest. Patient states she had right tonsillectomy 4 days ago and is taking [place] and amoxicillin. She denies hx of diabetes or HTN. Her mother has HTN. - History of Current Complaint Chief Complaint: EDChestPainROMI Stated Complaint: SOB PER PT Time Seen by Provider: 05/02/19 02:57 Hx Obtained From: Patient, Family/Dispatcher [employer] - Onset/Duration: Sudden Onset, Lasting Hours - 3 Initial Severity: Severe Current Severity: Moderate Pain Intensity: 7 Character: Dyspnea at Rest, Dyspnea on Exertion Sputum Amount: None Aggravating Factor(s): Nothing Alleviating Factor(s): Rest Associated Signs and Symptoms: Chest Pain - chest heaviness, Dyspnea - Allergy/Home Medications Allergies/Adverse Reactions: Allergies Allergy/AdvReac Type Severity Reaction Status Date / Time erythromycin base Allergy GI Upset Verified 03/13/19 09:56 Home Medications: Home Medications Amoxicillin PO (*) [Amoxicillin 400 MG/5 ML SUSP*] 400 mg PO BID 05/02/19 [ History Confirmed 05/02/19] Hydrocodone/Acetaminophen [Hydrocodone-Acetamn 7.5-325/15] 15 ml PO Q4HR [History Confirmed 05/02/19] ValACYclovir (*) [Valtrex 1 GM(*)] 2 gm PO BID PRN 05/02/19 [History Confirmed 05/02/19] PMH/Surg Hx/FS Hx/Imm Hx Previously Healthy: No Endocrine/Hematology History: Denies: Hx Diabetes, Hx Thyroid Disease Cardiovascular History: Denies: Hx Hypertension, Hx Pacemaker/ICD Respiratory History: Denies: Hx Asthma, Hx Chronic Obstructive Pulmonary Disease (COPD) GI History: Denies: Hx Ulcer Sensory History: Denies: Hx Eye Prosthesis, Hx Glaucoma, Hx Legally Blind, Hx Hearing Aid Opthamlomology History: Denies: Hx Eye Prosthesis, Hx Glaucoma, Hx Legally Blind Neurological History: Denies: Hx Migraine Psychiatric History: Denies: Hx Panic Disorder - Surgical History Surgical History: Yes Surgery Procedure, Year, and Place: Benign Melanoma Left Index Finger Jul 2011 - Immunization History Immunizations Up to Date: Yes Infectious Disease History: No Infectious Disease History: Reports: Traveled Outside the [place] in Last 30 Days Denies: Hx Hepatitis, Hx Human Immunodeficiency Virus (HIV) - Family History Known Family History: Positive: Cardiac Disease, Diabetes, Other - kidney stones in grandparents, father, brother, aunt Negative: Renal Disease, Respiratory Disease, Seizure Disorder - Social History Alcohol Use: Occasionally Hx Substance Use: No Substance Use Type: Reports: None Hx Tobacco Use: No Smoking Status (MU): Never Smoked Tobacco Do You Chew or Dip Tobacco: No Have You Chewed or Dipped Tobacco in the LAST YEAR: No Have You Smoked in the Last Year: No Review of Systems Negative: Skin Diaphoresis Cardiovascular: Other - positive - chest heaviness Respiratory: Other - positive - dyspnea, able to swallow Neurological: Other - positive - trembling. negative - nightmares Psychological: Other - positive - panicking, All Other Systems Reviewed And Are Negative: Yes Physical Exam - Summary Physical Exam Summary: VITAL SIGNS: Reviewed. GENERAL: Patient is a well-developed and nourished FEMALE who is lying comfortable in the stretcher. Patient is not in any acute respiratory distress. HEAD AND FACE: No signs of trauma. No ecchymosis, hematomas or skull depressions. No sinus tenderness. EYES: PERRLA, EOMI x 2, No injected conjunctiva, no nystagmus. EARS: Hearing grossly intact. Ear canals and tympanic membranes are within normal limits. MOUTH: Oropharynx within normal limits. NECK: Supple, trachea is midline, no adenopathy, no JVD, no carotid bruit, no c- spine tenderness, neck with full ROM CHEST: Symmetric, no tenderness at palpation LUNGS: Clear to auscultation bilaterally. No wheezing or crackles. CVS: Regular rate and rhythm, S1 and S2 present, no murmurs or gallops appreciated. ABDOMEN: Soft, non-tender. No signs of distention. No rebound no guarding, and no masses palpated. Bowel sounds are normal. EXTREMITIES: FROM in all major joints, no edema, no cyanosis or clubbing. NEURO: Alert and oriented x 3. No acute neurological deficits. Speech is normal and follows commands. SKIN: Dry and warm Triage Information Reviewed: Yes Vital Signs On Initial Exam: Initial Vitals Temp Pulse Resp BP Pulse Ox 98.4 F 78 15 137/90 100 05/02/19 02:40 05/02/19 02:40 05/02/19 02:40 05/02/19 02:40 05/02/19 02:40 Vital Signs Reviewed: Yes Diagnostics - Vital Signs Vital Signs Temp Pulse Resp BP Pulse Ox 05/02/19 04:52 81 12 110/68 97 05/02/19 03:43 66 12 125/95 98 05/02/19 02:40 98.4 F 78 15 137/90 100 - Laboratory Lab Results: Lab Results 05/02/19 05/02/19 05/02/19 Range/Units 03:58 03:58 03:58 WBC 10.5 (3.5-10.8) 10^3/uL RBC 4.19 (3.70-4.87) 10^6 /uL Hgb 12.8 (12.0-16.0) g/dL Hct 37 (35-47) % MCV 89 (80-97) fL MCH 31 (27-31) pg MCHC 34 (31-36) g/dL RDW 14 (10-15) % Plt Count 355 (150-450) 10^3/uL MPV 6.9 L (7.4-10.4) fL Neut % (Auto) 64.0 % Lymph % (Auto) 26.6 % [place] % (Auto) 4.9 % Eos % (Auto) 3.7 % Baso % (Auto) 0.8 % Absolute Neuts (auto) 6.7 (1.5-7.7) 10^3/ul Absolute Lymphs (auto) 2.8 (1.0-4.8) 10^3/ul Absolute Monos (auto) 0.5 (0-0.8) 10^3/ul Absolute Eos (auto) 0.4 (0-0.6) 10^3/ul Absolute Basos (auto) 0.1 (0-0.2) 10^3/ul Absolute Nucleated RBC 0.0 10^3/ul Nucleated RBC % 0.1 INR (Anticoag Therapy) 1.05 (0.82-1.09) APTT 35.7 (26.0-38.0) seconds Sodium 139 (135-145) mmol/L Potassium 3.7 (3.5-5.0) mmol/L Chloride 101 (101-111) mmol/L Carbon Dioxide 29 (22-32) mmol/L Anion Gap 9 (2-11) mmol/L BUN 6 (6-24) mg/dL Creatinine 0.69 (0.51-0.95) mg/dL Est GFR ( Amer) 114.0 (>60) Est GFR (Non-Af Amer) 94.2 (>60) BUN/Creatinine Ratio 8.7 (8-20) Glucose 96 (70-100) mg/dL Calcium 9.2 (8.6-10.3) mg/dL Total Bilirubin 0.70 (0.2-1.0) mg/dL AST 38 (13-39) U/L ALT 46 (7-52) U/L Alkaline Phosphatase 71 (34-104) U/L Troponin I 0.00 (<0.04) ng/mL Total Protein 7.1 (6.4-8.9) g/dL Albumin 3.7 (3.2-5.2) g/dL Globulin 3.4 (2-4) g/dL Albumin/Globulin Ratio 1.1 (1-3) Result Diagrams: 05/02/19 03:58 05/02/19 03:58 Lab Statement: Any lab studies that have been ordered have been reviewed, and results considered in the medical decision making process. - Radiology CXR Radiology Interpretation Completed By: ED Physician Summary of Radiographic Findings: shows no acute process - EKG 0248 Cardiac Rate: NL - 68 BPM EKG Rhythm: Sinus Rhythm Summary of EKG Findings: Sinus rhythm, 68 BPM Re-Evaluation - Re-Evaluation First Eval Re-Evaluation Time: 03:43 Change: Improved Comment: Pt states she is pain free at this time Disposition - Course Course Of Treatment: This patient is a 38 year old F presenting to [facility] accompanied by her with a chief complaint of difficulty breathing since 0150 this morning. She stood up and walked around to get her breathing under control with no success. She then woke her up and they came to the ED. The episode lasted for half an hour and she notes she feels better now. Patient reports panicking, chest heaviness, trembling, and is able to swallow. Patient denies diaphoresis or any nightmares. The patient rates the pain 7/10 in severity. Symptoms aggravated by nothing. Symptoms alleviated by rest. Patient states she had right tonsillectomy 4 days ago and is taking [place] and amoxicillin. She denies hx of diabetes or HTN. Her mother has HTN. Physical exam findings show no remarkable findings. Lab results show MPV 6.9. EKG at 0248 shows sinus rhythm, 68 BPM. CXR shows no acute process. During the ED course, the patient was given fentaNYL. Final diagnosis is CP. Patient is agreeable to discharge. Patient was told to follow up with Dr. Ritchie, cardiology, within 1-2 days and to return to the ED for any new or worsening symptoms. - Diagnoses Provider Diagnoses: Chest pain Discharge - Sign-Out/Discharge Documenting (check all that apply): Patient Departure - discharge Patient Received Moderate/Deep Sedation with Procedure: No - Discharge Plan Condition: Stable Disposition: HOME Patient Education Materials: Chest Pain (ED) Referrals: Tangela Rivera MD [Primary Care Provider] - Bryn Ritchie MD [Medical Doctor] - 1 Day Additional Instructions: Follow up with Dr. Ritchie, cardiology, within 1-2 days. Return to the ED for any new or worsening symptoms. - Attestation Statements Document Initiated by Scribe: Yes Documenting Scribe: Ramses Ambriz Provider For Whom Mariana is Documenting (Include Credential): Dr. Leatha Mehta MD Scribe Attestation: Ramses Cain, scribed for Dr. Leatha Mehta MD on 05/02/19 at 0716. Status of Scribe Document: Ready
[2019-05-02] MEDS ORDERED: fentaNYL* 50 MCG/ML 2 ML VIAL (100 MCG VIAL) IV SLOW PU ONE (05:34)
[2019-05-02 07:15] VITALS: BP 130/74
== END 2019-05-02 07:13 | disposition home or self-care (01) ==
LOC: ED 02:39
DX: R07.9 Chest pain, unspecified (principal); R06.00 Dyspnea, unspecified; Z90.89 Acquired absence of other organs
CPT/HCPCS: 36415; 71045; 80053; 84484; 85025; 85610; 85730; 93005; 99284